=== PATIENT | female | born 1960 | race Hispanic/Latino ===

== ENCOUNTER 2018-11-18 00:16 | Emergency (ER) | payer OTHER ==
[~2018-11-18 00:16] MED LIST: ACET1TAB12 PO; AEC81 PO; ASCO-360 PO; CEFD300C3 PO; LISI-613 PO; MELO-108 PO; METF-444 PO; PRAV10TA39 PO
[2018-11-18] MEDS ORDERED: KETOROLAC TROMETHAMINE 30MG/ML ONE (01:18)
[2018-11-18] MEDS ORDERED: SODIUM CHLORIDE 0.9% 1000ML 1,000 ML IV ONE (01:19)
[2018-11-18 01:50] LABS: BASOPHILS % (AUTO) 0.5 % (0.0-5.0); EOSINOPHILS % (AUTO) 0.4 % (0.0-8.0); HEMATOCRIT 41.5 % (36-48); LYMPHOCYTES % (AUTO) 16.7 % (21.0-51.0); MEAN CORPUSCULAR HGB CONC 33.9 g/dL (32.0-36.0); MEAN CORPUSCULAR VOLUME 88.6 fL (79-99); MONOCYTES % (AUTO) 7.3 % (3.0-13.0); NEUTROPHILS % (AUTO) 75.1 % (40.0-77.0); PLATELET COUNT (AUTO) 260 K/uL (130-400); RED BLOOD CELL COUNT(AUTO) 4.68 MIL/uL (4.00-5.50); RED CELL DISTRIBUTION WIDTH 13.6 % (11.0-15.5); WHITE BLOOD COUNT (AUTO) 12.6 K/uL (4.8-10.8)
[2018-11-18 02:01] LABS: PARTIAL THROMBOPLASTIN TIME 26.4 SEC (26.3-35.5); PROTHROMBIN TIME 10.5 SEC (9.6-11.6)
[2018-11-18 02:02] LABS: CREATININE 0.8 mg/dL (0.5-1.5); POTASSIUM 3.6 mmol/L (3.5-5.1)
[2018-11-18 02:08] LABS: ALBUMIN 4.1 g/dL (3.5-5.0); BILIRUBIN,TOTAL 0.7 mg/dL (0.2-1.0); TOTAL PROTEIN, SERUM 7.9 g/dL (6.0-8.3)
[2018-11-18] MEDS ORDERED: ONDANSETRON HCL 4 MG/2 ML VIAL ONE (02:37)
[2018-11-18] MEDS ORDERED: MORPHINE SULFATE 2 MG/ML 1ML SYG ONE (02:38)
[2018-11-18 04:20] LABS: APPEARANCE,URINE Clear (CLEAR); BILIRUBIN,URINE Negative (NEGATIVE); COLOR,URINE Yellow (YELLOW); GLUCOSE, URINE (UA) Negative (NEGATIVE); KETONES,URINE Negative (NEGATIVE); LEUKOCYTE ESTERASE ,URINE Moderate (NEGATIVE); NITRATE,URINE Negative (NEGATIVE); OCCULT BLOOD,URINE Negative (NEGATIVE); PH,URINE 6.5 (5.0-8.0); PROTEIN,URINE Negative (NEGATIVE)
[2018-11-18 04:27] LABS: AMPHET/METH SCREEN,URINE NEGATIVE (NEGATIVE); BARBITURATE SCREEN, URINE NEGATIVE (NEGATIVE); BENZODIAZEPINES SCREEN,URINE NEGATIVE (NEGATIVE); CANNABINOID SCREEN,URINE NEGATIVE (NEGATIVE); COCAINE SCREEN,URINE NEGATIVE (NEGATIVE); OPIATE SCREEN,URINE NEGATIVE (NEGATIVE); PHENCYCLIDINE SCREEN,URINE NEGATIVE (NEGATIVE)
[2018-11-18 04:40] LABS: BACTERIA,URINE None Seen /HPF (None Seen); MUCUS,URINE Rare LPF (None Seen); RBC,URINE None Seen /HPF (0-1); SQUAMOUS EPITHELIAL CELL,UR Rare /HPF (0-2); WBC,URINE 0-1 /HPF (0-1)
== END 2018-11-18 04:09 | disposition home or self-care (01) ==
LOC: EDH 00:16
DX: S42.201A Unspecified fracture of upper end of right humerus, initial encounter for closed fracture (principal); S63.501A Unspecified sprain of right wrist, initial encounter; S80.02XA Contusion of left knee, initial encounter; S09.93XA Unspecified injury of face, initial encounter; E11.9 Type 2 diabetes mellitus without complications; I10 Essential (primary) hypertension; E78.5 Hyperlipidemia, unspecified; Z88.0 Allergy status to penicillin; W18.39XA Other fall on same level, initial encounter; Y93.89 Activity, other specified; Y92.89 Other specified places as the place of occurrence of the external cause; Y99.8 Other external cause status
CPT/HCPCS: 36415; 73060; 73110; 73562; 80053; 80305; 81001; 82550; 85025; 85610; 85730; 96374; 96375; 99285; J1885; J2405; J7030

== ENCOUNTER 2020-04-01 14:45 | Emergency (ER) | payer OTHER ==
[~2020-04-01 14:45] MED LIST changes: -LISI-613 PO; +LISI20TA24 PO
[2020-04-01 15:26] LABS: BASOPHILS % (AUTO) 0.2 % (0.0-5.0); EOSINOPHILS % (AUTO) 0.3 % (0.0-8.0); HEMATOCRIT 45.3 % (36-48); LYMPHOCYTES % (AUTO) 15.2 % (21.0-51.0); MEAN CORPUSCULAR HEMOGLOBIN 29.3 pg (27.0-33.0); MEAN CORPUSCULAR HGB CONC 34.7 g/dL (32.0-36.0); MEAN CORPUSCULAR VOLUME 84.7 fL (79-99); MONOCYTES % (AUTO) 5.6 % (3.0-13.0); NEUTROPHILS % (AUTO) 78.5 % (40.0-77.0); PLATELET COUNT (AUTO) 344 K/uL (130-400); RED BLOOD CELL COUNT(AUTO) 5.35 MIL/uL (4.00-5.50); RED CELL DISTRIBUTION WIDTH 12.3 % (11.0-15.5); WHITE BLOOD COUNT (AUTO) 13.1 K/uL (4.8-10.8)
[2020-04-01] MEDS ORDERED: ONDANSETRON HCL 4 MG/2 ML VIAL ONE (15:42)
[2020-04-01] MEDS ORDERED: SODIUM CHLORIDE 0.9% 1000ML 1,000 ML IV ONE ×3 (15:43→20:26)
[2020-04-01] MEDS ORDERED: KETOROLAC TROMETHAMINE 30MG/ML ONE (15:43)
[2020-04-01 15:45] LABS: ALBUMIN 4.3 g/dL (3.5-5.0); BILIRUBIN,TOTAL 1.7 mg/dL (0.2-1.0); CREATININE 0.5 mg/dL (0.5-1.5); TOTAL PROTEIN, SERUM 8.6 g/dL (6.0-8.3)
[2020-04-01 15:52] LABS: POTASSIUM 2.9 mmol/L (3.5-5.1)
[2020-04-01] MEDS ORDERED: POTASSIUM BICARB/CIT AC 25 MEQ TABLET.EFF ONE (16:35)
[2020-04-01] MEDS ORDERED: PANTOPRAZOLE 40 MG/VIAL ONE (20:25)
[2020-04-01] MEDS ORDERED: METOCLOPRAMIDE 10 MG/2 ML VIAL ONE (20:25)
[2020-04-01] MEDS ORDERED: FAMOTIDINE/PF 20 MG/2 ML VIAL IV ONE (20:26)
[2020-04-01 20:38] LABS: APPEARANCE,URINE Clear (CLEAR); BILIRUBIN,URINE Negative (NEGATIVE); COLOR,URINE Yellow (YELLOW); GLUCOSE, URINE (UA) Negative (NEGATIVE); KETONES,URINE 15 mg/dL (NEGATIVE); LEUKOCYTE ESTERASE ,URINE Moderate (NEGATIVE); NITRATE,URINE Negative (NEGATIVE); OCCULT BLOOD,URINE Negative (NEGATIVE); PH,URINE 7.5 (5.0-8.0); PROTEIN,URINE Negative (NEGATIVE)
[2020-04-01 20:50] LABS: BACTERIA,URINE Few /HPF (None Seen); MUCUS,URINE Moderate LPF (None Seen); RBC,URINE 0-1 /HPF (0-1); SQUAMOUS EPITHELIAL CELL,UR Few /HPF (0-2)
== END 2020-04-01 21:46 | disposition home or self-care (01) ==
LOC: EDH 14:45
DX: N39.0 Urinary tract infection, site not specified (principal); E87.6 Hypokalemia; E86.0 Dehydration; R51.9 Headache, unspecified; E11.9 Type 2 diabetes mellitus without complications; I10 Essential (primary) hypertension; E78.5 Hyperlipidemia, unspecified; Z87.891 Personal history of nicotine dependence; Z88.0 Allergy status to penicillin
CPT/HCPCS: 36415; 70450; 74176; 80053; 81001; 82550; 83605; 83690; 85025; 87040 ×2; 87088; 93005; 96361; 96374; 96375; 99285; C9113; J1885; J2405; J2765; J3490; J7030 ×3

== ENCOUNTER 2021-06-17 16:31 | Emergency (ER) | payer OTHER, SELFPAY ==
[~2021-06-17] VITALS: Ht 162.6 cm; Wt 81.2 kg
[2021-06-17 16:36] VITALS: BP 128/87
[2021-06-17] MEDS ORDERED: ONDANSETRON ODT 4MG TAB SL ONE (17:30)
[2021-06-17] MEDS ORDERED: MECLIZINE HCL 25 MG TABLET PO ONE (17:30)
[2021-06-17 17:57] LABS: BASOPHILS % (AUTO) 0.3 % (0.0-5.0); EOSINOPHILS % (AUTO) 1.5 % (0.0-8.0); HEMATOCRIT 46.8 % (36-48); LYMPHOCYTES % (AUTO) 26.2 % (21.0-51.0); MEAN CORPUSCULAR HEMOGLOBIN 28.9 pg (27.0-33.0); MEAN CORPUSCULAR HGB CONC 33.5 g/dL (32.0-36.0); MONOCYTES % (AUTO) 9.3 % (3.0-13.0); NEUTROPHILS % (AUTO) 62.4 % (40.0-77.0); PLATELET COUNT (AUTO) 298 K/uL (130-400); RED BLOOD CELL COUNT(AUTO) 5.44 MIL/uL (4.00-5.50); RED CELL DISTRIBUTION WIDTH 13.7 % (11.0-15.5); WHITE BLOOD COUNT (AUTO) 8.7 K/uL (4.8-10.8)
[2021-06-17 18:11] LABS: CREATININE 0.8 mg/dL (0.5-1.5); POTASSIUM 3.1 mmol/L (3.5-5.1)
[2021-06-17 18:14] LABS: APPEARANCE,URINE Clear (CLEAR); BILIRUBIN,URINE Negative (NEGATIVE); COLOR,URINE Yellow (YELLOW); GLUCOSE, URINE (UA) Negative (NEGATIVE); KETONES,URINE 15 mg/dL (NEGATIVE); LEUKOCYTE ESTERASE ,URINE Moderate (NEGATIVE); NITRATE,URINE Negative (NEGATIVE); OCCULT BLOOD,URINE Small (NEGATIVE); PH,URINE 7.5 (5.0-8.0); PROTEIN,URINE Negative (NEGATIVE)
[2021-06-17 18:37] LABS: BACTERIA,URINE Few /HPF (None Seen); SQUAMOUS EPITHELIAL CELL,UR Moderate /HPF (0-2)
[2021-06-17] MEDS ORDERED: MECL-160 PO (18:45)
[2021-06-17] MEDS ORDERED: CEPH500B PO (18:45)
[2021-06-17] MEDS ORDERED: ONDA4TAB10 PO (18:45)
[2021-06-17] MEDS ORDERED: CEPHALEXIN 500 MG CAPSULE PO ONE (19:00)
== END 2021-06-17 18:59 | disposition home or self-care (01) ==
LOC: EDH 16:31
DX: R42 Dizziness and giddiness (principal); N39.0 Urinary tract infection, site not specified; E87.6 Hypokalemia; I10 Essential (primary) hypertension; E11.9 Type 2 diabetes mellitus without complications; Z87.442 Personal history of urinary calculi; Z88.0 Allergy status to penicillin; Z79.82 Long term (current) use of aspirin; Z79.84 Long term (current) use of oral hypoglycemic drugs; Z79.899 Other long term (current) drug therapy
CPT/HCPCS: 36415; 80048; 81001; 84484; 85025; 87077; 87088; 87186; 93005

== ENCOUNTER 2023-08-22 21:46 | Emergency (ER) | payer BC, OTHER ==
[~2023-08-22] VITALS: Ht 157.5 cm; Wt 87.1 kg
[~2023-08-22 21:46] MED LIST changes: -ACET1TAB12 PO; -AEC81 PO; -ASCO-360 PO; -CEFD300C3 PO; +DULO30CA52 PO; +HYDR-4068 PO; +LEVO750T39 PO; +LISI1TAB53 PO; -LISI20TA24 PO; -MELO-108 PO; -PRAV10TA39 PO
[2023-08-22 22:11] LABS: RAPID GROUP A STREP negative (NEGATIVE)
[2023-08-22 22:20] LABS: INFLUENZA TYPE A Negative For Type A (NEGATIVE); INFLUENZA TYPE B Negative For Type B (NEGATIVE); SARS-CoV-2, RNA, NAAT POSITIVE SARS CoV-2 (NEGATIVE)
[2023-08-22 22:46] LABS: BASOPHILS # (AUTO) 0.01 K/uL (0.00-0.20); BASOPHILS % (AUTO) 0.2 % (0.0-5.0); EOSINOPHILS # (AUTO) 0.09 K/uL (0.00-0.70); EOSINOPHILS % (AUTO) 1.9 % (0.0-8.0); HEMATOCRIT 43.9 % (36-48); IMMATURE GRANULOCYTE ABSOLUTE 0.01 K/uL (0-1); LYMPHOCYTES # (AUTO) 1.4 K/uL (1.0-4.8); LYMPHOCYTES % (AUTO) 30.6 % (21.0-51.0); MEAN CORPUSCULAR HEMOGLOBIN 30.2 pg (27.0-33.0); MEAN CORPUSCULAR HGB CONC 34.2 g/dL (32.0-36.0); MEAN CORPUSCULAR VOLUME 88.3 fL (79-99); MONOCYTES # (AUTO) 0.7 K/uL (0.1-1.0); MONOCYTES % (AUTO) 14.3 % (3.0-13.0); NEUTROPHILS # (AUTO) 2.5 K/uL (1.8-7.7); NEUTROPHILS % (AUTO) 52.8 % (40.0-77.0); PLATELET COUNT (AUTO) 223 K/uL (130-400); RED BLOOD CELL COUNT(AUTO) 4.97 MIL/uL (4.00-5.50); RED CELL DISTRIBUTION WIDTH 13.1 % (11.0-15.5); WHITE BLOOD COUNT (AUTO) 4.7 K/uL (4.8-10.8)
[2023-08-22 22:56] LABS: CREATININE 0.7 mg/dL (0.5-1.0); POTASSIUM 3.4 mmol/L (3.5-5.1)
[2023-08-22] MEDS: 0.9%NACL 1000ML 1,000 ML IV STA (23:07)
[2023-08-22] MEDS ORDERED: BENZ-226 PO (23:20)
[2023-08-22 23:52] VITALS: BP 125/78; PULSE 71; RESP 18; O2SAT 98
== END 2023-08-23 00:01 | disposition home or self-care (01) ==
LOC: EDH 21:46
DX: U07.1 COVID-19 (principal); I10 Essential (primary) hypertension; Z79.84 Long term (current) use of oral hypoglycemic drugs; Z79.899 Other long term (current) drug therapy; Z88.0 Allergy status to penicillin
CPT/HCPCS: 99283; 71045; 87635; 80048; 85025; 87880; 87804 ×2; 83605; 36415; J7030

== ENCOUNTER 2024-09-20 15:32 | Emergency (ER) | payer BC ==
[~2024-09-20] VITALS: Ht 157.5 cm; Wt 82.1 kg
[~2024-09-20 15:32] MED LIST changes: +BENZ-226 PO; -LEVO750T39 PO; +LEVO750T90 PO
--- NOTE | 2024-09-20 15:51 | ERN ---
ED Note History of Present Illness Stated Complaint: LEFT RIB PAIN Chief Complaint: Rib Pain Time Seen by MD: 15:38 Dictation: PATIENT IS A 63-YEAR-OLD FEMALE COMING IN TODAY WITH LEFT LOWER RIB MARGIN PAIN TENDERNESS ONSET TWO WEEKS PRIOR TO ARRIVAL. SHE STATES SHE WAS CLEANING HER ANTERIOR FOR CAR, WAS LEANING OVER AN ARM REST IN HER CAR AND WHEN SHE GOT UP SHE NOTED THE PAIN. SHE SAID IT IS COMING GONE. NO JAW PAIN NO ARM PAIN NO BACK PAIN NO NAUSEA VOMITING. PAIN IS REPRODUCIBLE WITH PALPATION. SHE STATES SHE DID NOT GO SEE HER PRIMARY CARE DOCTOR HOWEVER SHE DID TAKE TRAMADOL 50 MG LAST NIGHT BECAUSE OF THE PAIN. Allergies: Coded Allergies: Penicillins (Unverified Allergy, Severe, THROAT SWELLING, THROAT CLOSE UP, HIVES, 12/08/15) Home Meds Active Scripts Benzonatate (Benzonatate) 100 Mg Capsule, 100 MG PO TIDP PRN for COUGH/COLD SYMPTOMS for 7 Days, #21 CAP Prov:HERNAN STEINER BLADE FILER 08/22/23 Hydrocodone/Acetaminophen (Hydrocodon-Acetaminophn 10-325) 1 Each Tablet, 1 EACH PO Q6HPRN PRN for PAIN for 3 Days, #30 TAB 0 Refills Prov:GERALDO BUENROSTRO MD 02/11/22 Levofloxacin (Levofloxacin) 750 Mg Tablet, 750 MG PO DAILY for 10 Days, #10 TAB 0 Refills Prov:GERALDO BUENROSTRO MD 02/11/22 Reported Medications Duloxetine HCl (Duloxetine HCl) 30 Mg Capsule.dr, 30 MG PO BID, CAP 02/09/22 Lisinopril/Hydrochlorothiazide (Lisinopril-Hctz 20-25 mg Tab) 1 Each Tablet, 1 EACH PO DAILY, TAB 02/09/22 Metformin HCl (Metformin HCl) 500 Mg Tablet, 500 MG PO BID, TAB 02/09/22 Past Medical History Past Medical History: Hypertension, Kidney Stone, Other Additional Past Medical Hx: prediabetic Surgical History: Other Surgical History Other: kidney stone Social History: Negative, Other History: Not Applicable RN Note Reviewed/Agreed w/PFSH: Yes Review of System Dictation CONSTITUTIONAL: NEGATIVE EXCEPT FOR HPI HEAD/FACE: NEGATIVE EXCEPT FOR HPI EENT: NEGATIVE EXCEPT FOR HPI RESPIRATORY: NEGATIVE EXCEPT FOR HPI LEFT LATERAL INFERIOR CHEST WALL TENDERNESS GASTROINTESTINAL/ABDOMINAL: NEGATIVE EXCEPT FOR HPI GENITOURINARY: NEGATIVE EXCEPT FOR HPI MUSCULOSKELETAL: NEGATIVE EXCEPT FOR HPI INTEGUMENTARY: NEGATIVE EXCEPT FOR HPI NEUROLOGICAL/PSYCH: NEGATIVE EXCEPT FOR HPI HEMATOLOGIC/LYMPHATIC: NEGATIVE EXCEPT FOR HPI ALL SYSTEMS NEGATIVE, EXCEPT NOTED ABOVE. 13 POINT REVIEW OF SYSTEMS ASSESSED AND ALL NEGATIVE EXCEPT FOR ABOVE. Initial Vital Sign VS Vital Signs Date Time Temp Pulse Resp B/P (MAP) Pulse Ox O2 Delivery O2 Flow Rate FiO2 09/20/24 15:34 98.4 75 16 109/72 98 Room Air 0 09/20/24 15:38 21 Physical Exam Dictation VITAL SIGNS REVIEWED GENERAL APPEARANCE: ALERT, ORIENTED X 3, MILD ACUTE DISTRESS, WELL DEVELOPED, NOURISHED. HEAD AND FACE: NON-TRAUMATIC. EYES: PERRL, PINK CONJUNCTIVAS, EYELID NO TRAUMA, ANTERIOR CHAMBER WITH ARCUS SENILIS. EARS: PINNAS INTACT AND NO SIGNS OF TRAUMA OR ERYTHEMA EAR CANALS CLEAR AND NO DISCHARGE TM NO ERYTHEMA NOSE: NO DISCHARGE, NO BLEEDING. OROPHARYNX: MOUTH NORMAL, TONGUE PINK, PHARYNX CLEAR,NO ERYTHEMA, TONSILS NO EXUDATES, NO ABSCESSES NOTED, MUCOUS MEMBRANE MOIST NECK: SUPPLE, NON-TENDER, NO THYROMEGALY, NO MASSES, NO JVD, NO BRUITS BREAST:DEFERRED CHEST: MILD LEFT INFERIOR ANTERIOR RIB TENDERNESS WITH PALPATION TENDERNESS, NO CREPITUS, NO PARADOXICAL MOVEMENT, NO RETRACTIONS NO FOCAL LESIONS PALPATION REPRODUCES LUNGS:CLEAR, WELL-VENTILATED, SYMMETRIC, NO RALES, NO WHEEZING, NO RHONCHI, NO STRIDOR, GOOD BREATH SOUNDS BILATERALLY HEART: REGULAR RATE, REGULAR RHYTHM, NO MURMUR, NO GALLOPS VASCULAR: NO PERIPHERAL EDEMA, ABDOMEN: SOFT, POSITIVE BOWEL SOUNDS, NONDISTENDED, NO GUARDING, NONTENDER, NO REBOUND, NO MASSES NO HEPATOMEGALY, NO SPLENOMEGALY, NO RUDD'S SIGN, NO HERNIAS. RECTAL: DEFERRED GENITAL: DEFERRED NEUROLOGICAL: NORMAL SPEECH, MOTOR FUNCTION INTACT, SENSORY FUNCTION INTACT MUSCULOSKELETAL: NECK NONTENDER, FULL RANGE OF MOTION, BACK NONTENDER, FULL RANGE OF MOTION, EXTREMITIES: NONTENDER, FULL RANGE OF MOTION SKIN: COLOR PINK, DRY, NO TURGOR, NO RASH, NO LACERATIONS, NO ABRASIONS, NO CONTUSIONS. LYMPHATIC: DEFERRED Results (Laboratory/Radiology) Laboratory/Radiology RIB SERIES NEGATIVE FOR FRACTURE, LUNGS ARE WELL EXPANDED Labs Reviewed?: Yes ED Course ED Course Orders Procedure Category Date Status Time Ribs Uni Lt W Pa RAD 8/7/25 Taken Chest 3+Vws 15:49 Ketorolac 60mg/2ml PHA 09/20/24 Transmitted (Toradol 60mg/2ml) 18:30 Current Medications Medications (Trade) Dose Ordered Sig/João Route PRN Reason Start Time Stop Time Status Last Admin Dose Admin Ketorolac Tromethamine (toRADol 60MG/ 2ML) 60 mg ONCE ONCE IM 09/20/24 18:30 09/20/24 18:31 UNV Vital Signs Date Time Temp Pulse Resp B/P (MAP) Pulse Ox O2 Delivery O2 Flow Rate FiO2 09/20/24 17:22 98.4 75 16 109/72 98 Room Air* 0 21 09/20/24 15:38 98.4 75 16 109/72 98 Room Air* 0 21 09/20/24 15:34 98.4 75 16 109/72 98 Room Air 0 Medical Decision Making [facility] 1820/MEDICAL DISCHARGE MAKING BASED ON RIB SERIES AND PAIN MANAGEMENT. X-RAYS NEGATIVE FOR FRACTURE PATIENT DIAGNOSED WITH CHEST WALL CONTUSION BE GIVEN TORADOL 60 MG IM HOME WITH IBUPROFEN 800 MG EVERY 8 HOURS FOR THE NEXT TWO DAYS AND SEE HER PRIMARY CARE DOCTOR DX & DISP Disposition: Discharge Departure Impression: Primary Impression: Contusion of left chest wall Condition: Stable Assign Patient to: FOLLOW-UP WITH PRIMARY CARE PROVIDER IN 1 TO 2 DAYS. TAKE MEDICATIONS DIRECTED HERE IN THE EMERGENCY ROOM. OKAY TO CONTINUE HOME MEDICATIONS UNLESS OTHERWISE DISCUSSED DURING YOUR VISIT IN THE EMERGENCY ROOM TODAY. RETURN TO YOUR NEAREST EMERGENCY ROOM IF SYMPTOMS WORSEN OR IF THERE IS NO IMPROVEMENT. CALL 911 IF YOU NEED IMMEDIATE ASSISTANCE. TAKE TYLENOL OR MOTRIN [id number] NEEDED AND IF NO CONTRAINDICATIONS ARE PRESENT. INCREASE ORAL HYDRATION. A WOUND CULTURE OR URINE CULTURE WAS ORDERED HERE IN THE EMERGENCY ROOM DEPARTMENT PLEASE FOLLOW-UP WITH PRIMARY CARE PROVIDER AND ADVISE THEM TO GET REPEAT PORTS FROM OUR FACILITY. IF YOU HAD ANY TERRANCE WRAP/SPLINTS THAT WERE APPLIED HERE, PLEASE DO NOT REMOVE THEM UNTIL YOU SEE YOUR PRIMARY CARE OR SPECIALTY. TAKE IBUPROFEN WITH FOOD EVERY 8 HOURS FOR THE NEXT TWO DAYS. SEE YOUR PRIMARY CARE DOCTOR FOR FOLLOW UP AND MANAGEMENT. Scripts Ibuprofen (Ibuprofen 800 mg Tab) 800 Mg Tab 800 MG PO Q8H PRN for fever or pain, #30 TAB 0 Refills Prov: ORLANDO MARIN BLADE FILER 8/7/25 Referrals: JEREMY AVALOS DO (PCP) Time of Disposition: 18:24 I have reviewed the case, and I agree with, Diagnosis and Plan ORLANDO MARIN BLADE FILER Sep 20, 2024 15:51
[2024-09-20] MEDS ORDERED: IBUP-2077 PO (18:24)
[2024-09-20 18:41] VITALS: BP 110/68; PULSE 71; RESP 16; TEMP 98.4; O2SAT 98
--- NOTE | 2024-09-20 19:46 | HMCIMG ---
EXAM: CR left Rib, 3 View. CLINICAL HISTORY: LEFT LOWER INFERIOR RIB MARGIN TENDERNESS WITH PALPATION TWO WEEKS COMPARISON: None provided. FINDINGS: LUNGS: The visualized lungs appear essentially clear. PLEURAL SPACES: No evidence of pneumothorax. No pleural effusion. BONES: No visible acute rib fracture. Old mid left clavicular fracture. IMPRESSION: No visible acute rib fracture. No pneumothorax. If clinical concern persist recommend CT imaging for further evaluation. /[place]
== END 2024-09-20 18:45 | disposition home or self-care (01) ==
LOC: EDH 15:32
DX: S20.212A Contusion of left front wall of thorax, initial encounter (principal); I10 Essential (primary) hypertension; Z79.84 Long term (current) use of oral hypoglycemic drugs; Z79.899 Other long term (current) drug therapy; Z88.0 Allergy status to penicillin; X58.XXXA Exposure to other specified factors, initial encounter; Y93.89 Activity, other specified; Y92.89 Other specified places as the place of occurrence of the external cause; Y99.8 Other external cause status
CPT/HCPCS: 99284; 71101; 96372; J1885

== ENCOUNTER 2024-11-06 16:37 | Emergency (ER) | payer BC ==
[~2024-11-06] VITALS: Ht 160 cm; Wt 82.1 kg
[~2024-11-06 16:37] MED LIST changes: +IBUP-2077 PO
[2024-11-06 16:56] VITALS: BP 120/74; PULSE 72; RESP 16; TEMP 98.1; O2SAT 98
--- NOTE | 2024-11-06 17:10 | ERN ---
ED Note History of Present Illness Stated Complaint: RT ANKLE INJURY Chief Complaint: Ankle Problem Time Seen by MD: 16:40 Time Seen by Midlevel: 16:44 Dictation: 64-year-old female coming in for complaints of right ankle pain. Patient states she sprained her ankle one week ago but has not gotten better. Patient states she is able to bear weight on it. Denies any injury. Allergies: Coded Allergies: Penicillins (Unverified Allergy, Severe, THROAT SWELLING, THROAT CLOSE UP, HIVES, 12/08/15) Home Meds Active Scripts Ibuprofen (Ibuprofen 800 mg Tab) 800 Mg Tab, 800 MG PO Q8H PRN for fever or pain, #30 TAB 0 Refills Prov:ORLANDO MARIN INDUSTRIAL MAINTENANCE REPAIRER 09/20/24 Benzonatate (Benzonatate) 100 Mg Capsule, 100 MG PO TIDP PRN for COUGH/COLD SYMPTOMS for 7 Days, #21 CAP Prov:HERNAN STEINER INDUSTRIAL MAINTENANCE REPAIRER 08/22/23 Hydrocodone/Acetaminophen (Hydrocodon-Acetaminophn 10-325) 1 Each Tablet, 1 EACH PO Q6HPRN PRN for PAIN for 3 Days, #30 TAB 0 Refills Prov:GERALDO BUENROSTRO MD 02/11/22 Levofloxacin (Levofloxacin) 750 Mg Tablet, 750 MG PO DAILY for 10 Days, #10 TAB 0 Refills Prov:GERALDO BUENROSTRO MD 02/11/22 Reported Medications Duloxetine HCl (Duloxetine HCl) 30 Mg Capsule.dr, 30 MG PO BID, CAP 02/09/22 Lisinopril/Hydrochlorothiazide (Lisinopril-Hctz 20-25 mg Tab) 1 Each Tablet, 1 EACH PO DAILY, TAB 02/09/22 Metformin HCl (Metformin HCl) 500 Mg Tablet, 500 MG PO BID, TAB 02/09/22 Past Medical History Past Medical History: Hypertension, Kidney Stone, Other Additional Past Medical Hx: prediabetic Surgical History: Other Surgical History Other: kidney stone Social History: Negative, Other History: Not Applicable Review of System Dictation Constitutional: Negative for fever,chills, and weight loss Eyes: Negative for injury, pain,redness, and discharge ENT: Negative for injury,pain or swelling Cardiovascular: Negative for chest pain, palpitations, and edema Respiratory: Negative for shortness of breath, cough, and wheezing, Abdomen/GI: Negative for abdominal pain, nausea, vomiting, diarrhea, and constipation Back: Negative for injury and pain : Negative for injury, bleeding and discharge MS/Extremity: Negative for injury and deformity, right ankle pain and swelling Skin: Negative for rash, and discoloration Neuro: Negative for headache, weakness, numbness, tingling, and seizure Psych: Negative for suicide ideation, homicidal ideation, and hallucinations Review of Systems: was completed Initial Vital Sign VS Vital Signs Date Time Temp Pulse Resp B/P (MAP) Pulse Ox O2 Delivery O2 Flow Rate FiO2 11/06/24 16:38 99.1 79 20 120/78 97 Room Air 11/06/24 16:56 0 21 Physical Exam Dictation General: awake, alert, NAD Head/Face: Normocephalic, atraumatic Eyes: PERRL, EOMI, vision at baseline ENT: oral cavity clear, TMs clear, no signs of infection Neck: Trachea midline, supple, no nuchal rigidity Cardiovascular: RRR, normal S1/S2, No MRGs, no JVD Respiratory: CTAB, no respiratory distress, No rales or wheezes Abdomen: Soft, non-tender, non-distended, normal bowel sounds, no guarding or rebound. Skin: Warm, dry, normal turgor, no rash MS/Extremity: Pulses equal, no cyanosis, neurovascular intact, FROM , swelling and a bruise noted to the right ankle in the lateral aspect. You the pulls and thigh. Full range of motion. Neuro: COAx4, GCS 15, strength 5/5, CN 2-12 intact, normal cerebellar exam, normal gait, Psych: Normal behavior, mood, and affect normal ED Course ED Course Orders Procedure Category Date Status Time Ankle Comp 3vws Rt RAD 11/06/24 Resulted 16:59 Ketorolac PHA 11/06/24 Complete Tromethamine 15mg/Ml 17:00 *Nursing CPOE 11/06/24 Transmitted Communication: 17:27 Crutches TRACEY 11/06/24 Complete 17:27 Current Medications Medications (Trade) Dose Ordered Sig/João Route PRN Reason Start Time Stop Time Status Last Admin Dose Admin Ketorolac Tromethamine (toRADol) 15 mg ONCE ONCE IM 11/06/24 17:00 11/06/24 17:06 DC 11/06/24 17:10 Vital Signs Date Time Temp Pulse Resp B/P (MAP) Pulse Ox O2 Delivery O2 Flow Rate FiO2 11/06/24 16:56 98.1 72 16 120/74 98 Room Air* 0 21 11/06/24 16:38 99.1 79 20 120/78 97 Room Air Medical Decision Making MDM MDM: 64-year-old female coming in for complaints of right ankle pain. Patient states she sprained her ankle one week ago but has not gotten better. Patient states she is able to bear weight on it. Denies any injury. X-ray of the ankle shows a possible distal fibula fracture. Patient will be placed in a boot and given crutches and follow up outpatient with the orthopedic surgeon. Discussed findings with the patient, agreed on plan. Educated to take Tylenol or Motrin [id number] for pain confirmed you keep elevated ice to help with the swelling. Patient verbalized pending, answered all questions. Differential diagnosis: Ankle sprain, tib-fib fracture, Rationale: Tests considered and ordered secondary to shared decision making include: Previous outside records reviewed: Old ER visits. Risk of complication and/or morbidity or mortality of patient management: None Medications-Per medication reconciliation Need for hospitalization: Patient does not meet criteria for hospitalization. Need for emergency major/minor surgery: No There are no social concerns with this patient. Prescription drug management Prescriptions will include symptomatic care Patient's prior external medical records from other ER visits were reviewed by me as indicated. Prior testing and results from previous visits were reviewed. Prior tests were taken into account with medical decision making and resource utilization, independent historian/historians were used to obtain complete medical history. I independently interpreted the test that were performed, results were reviewed by me and considered findings on radiology if ordered. Medical management and examination interpretation discussions were had by me with other qualified healthcare professionals as indicated for the patient's care. DX & DISP Disposition: Discharge Departure Impression: Primary Impression: Fracture of distal fibula Condition: Stable Additional Instructions: Avoid putting any weight on it if possible, follow up with PCP and or with the orthopedic surgeon. Take Tylenol or Motrin [id number] for pain control. Elevate when possible and apply ice to help with swelling. Referrals: JONATHAN NATION MD Time of Disposition: 17:27 I have reviewed the case, and I agree with, Diagnosis and Plan HERNAN STEINER NP Nov 06, 2024 17:10 RUSH WILEY DO Nov 06, 2024 18:01
--- NOTE | 2024-11-06 17:52 | HMCIMG ---
EXAM: XR Right Ankle, 3 Views. CLINICAL HISTORY: 64 year old female with pain and swelling of right ankle. COMPARISON: None provided. FINDINGS: BONES: Acute transverse fracture of the distal fibula and an inferior calcaneal spur. JOINTS: No dislocation. The joint spaces are normal. SOFT TISSUES: Soft tissue edema is present. IMPRESSION: 1. Transverse fracture of the distal fibula with soft tissue edema. 2. Inferior calcaneal spur. /[place]
== END 2024-11-06 17:41 | disposition home or self-care (01) ==
LOC: EDH 16:37
DX: S82.421A Displaced transverse fracture of shaft of right fibula, initial encounter for closed fracture (principal); I10 Essential (primary) hypertension; Z79.84 Long term (current) use of oral hypoglycemic drugs; Z79.899 Other long term (current) drug therapy; Z88.0 Allergy status to penicillin; X58.XXXA Exposure to other specified factors, initial encounter; Y93.89 Activity, other specified; Y92.89 Other specified places as the place of occurrence of the external cause; Y99.8 Other external cause status
CPT/HCPCS: 99284; 73610; 96372; J1885